=== PATIENT | female | born 1935 | race Caucasian/White ===

== ENCOUNTER → 2020-05-09 11:09 | Outpatient (CLI) | payer MEDICARE, OTHER, SELFPAY ==
--- NOTE | 2020-05-09 11:19 | VDLE_ITS ---
Reason For Study: Edema RIGHT LEFT GSV is normal. GSV is normal. CFV is compressible, spontaneous, phasic, CFV is compressible, spontaneous, phasic, competent and demonstrates normal competent, and demonstrates normal augmentation. augmentation. FV is compressible, spontaneous, phasic, FV is compressible, spontaneous, phasic, competent and demonstrates normal competent and demonstrates normal augmentation. augmentation. FV distal only visualized with color. pt POP V is compressible, spontaneous, phasic, unable to tolerate comrpession. competent and demonstrates normal POP V is compressible, spontaneous, phasic, augmentation. competent and demonstrates normal T/P Trunk is compressible. augmentation. PTV is compressible. T/P Trunk is compressible. LT PerV is compressible. PTV is compressible. RT PerV is compressible. Procedure Exam performed in department. A preliminary report was called and/or faxed to [facility]. Interpretation Summary Deep veins of the lower extremities are bilaterally patent and compressible segmentally. There is no evidence of deep vein thrombosis on either side. Valvular competence appears intact within the proximal deep venous systems bilaterally. The great saphenous veins appear bilaterally patent and compressible segmentally. Ordering Physician: Sheila Gloria Referring Physician: Kathy Calle Performed By: Chelsea Piña RVT and Student
[2020-05-09 12:40] LABS: Hematocrit 35.1 % (37-47); Hemoglobin 11.1 g/dL (12.0-15.0); Mean Corp Hgb Conc 31.6 g/dL (32-36); Mean Corpuscular Hgb 29.7 pg (27.0-32.0); Mean Corpuscular Volume 93.9 fL (81-99); Mean Platelet Vol. 8.6 fl (6.2-12.0); Platelet Count 367 K/mm3 (150-450); RBC Distribution Width CV 13.7 % (11.6-14.6); RBC Distribution Width SD 46.3 fl (35.1-43.9); Red Blood Count 3.74 M/mm3 (4.2-5.4); White Blood Count 8.3 K/mm3 (4.4-11.0)
[2020-05-09 13:08] LABS: ALB/GLOB Ratio 0.7 RATIO (0.9-2.4); AST(SGOT) 13 U/L (15-37); Alanine Aminotransfer ALT/SGPT 16 U/L (13-56); Albumin, Serum 3.1 g/dL (3.2-5.0); Alkaline Phosphatase 82 U/L (45-117); Anion Gap 7 (5-15); BUN 27 mg/dL (7-18); BUN/Creat Ratio 22.1 RATIO (10-20); Calcium,Total 9.4 mg/dL (8.5-10.1); Chloride 100 mmol/L (98-107); Creatinine, Serum 1.22 mg/dL (0.55-1.02); EST Glomerular Filtration Rate 45 mL/min (>60); Est Glom Filt Rate - Afr Amer 54 mL/min (>60); Globulin 4.3 g/dL (2.2-4.2); Glucose 96 mg/dL (74-106); Potassium 4.7 mmol/L (3.5-5.1); Protein, Total 7.4 g/dL (6.4-8.2); Sodium Level 133 mmol/L (136-145); T4 Free Direct 1.41 ng/dL (0.76-1.46); Thyroid Stim Hormone (TSH) 0.99 uIU/mL (0.358-3.74)
== END ==
PROVIDERS: PCP Nurse Practitioner; Referring Provider Internal Medicine; Visit Provider Internal Medicine
DX: R60.0 Localized edema (principal); D47.3 Essential (hemorrhagic) thrombocythemia; E87.1 Hypo-osmolality and hyponatremia
CPT/HCPCS: 36415; 80053; 82140; 84439; 84443; 85027; 93970

== ENCOUNTER 2021-08-11 01:56 | Emergency (ER) | payer MEDICARE, OTHER, SELFPAY ==
[2021-08-11 01:57] VITALS: BP 151/74; PULSE 100; RESP 16; TEMP 36.9; O2SAT 98; BMI 43.2
--- NOTE | 2021-08-11 02:14 | RAD_ITS ---
STUDY: X-RAY - RIGHT KNEE REASON FOR EXAM: Female, 86 years old. Pain after trauma TECHNIQUE: 4 view(s) of the knee. COMPARISON: None. FINDINGS: Please see the impression. RAD/Knee 4 or More Views IMPRESSION: No definite acute fracture or dislocation in the right knee. Advanced tricompartmental osteoarthritis. Trace suprapatellar joint fluid. Vascular calcification. Electronically Signed: Howie Lucero MD at 3:05 EDT Tel , Service support ,
--- NOTE | 2021-08-11 02:16 | EDS_ITS ---
HPI History of Present Illness Chief Complaint: Lower Extremity Injury Informant: patient Narrative Narrative: Patient has right knee area pain. She has been having problems with his knee for a long time. Its been recommended that she have a replacement. She does use a walker. She lives independently. She states she was trying to turn to sit down. Her right knee just kind of bound and gave out on her. She fell directly down. She never hit her head. She has some increase in her baseline right knee pain and some right hip area soreness. She does not want anything for pain now and was offered. No numbness or tingling. No palpitations or chest pain. This was a mechanical fall and not syncope. [facility] Medical History Cataract Diabetes Hypertension Allergy/AdvReac Type Severity Reaction Status Date / Time acetaminophen Allergy Itching Verified 08/11/21 02:05 Penicillins Allergy Shortness Verified 08/11/21 02:05 of breath Surgical History History of hysterectomy Total knee replacement status Social History Smoking Status: Never smoker ROS ROS ED Constitutional Constitutional ED: Denies fever(s) or subjective ENT ENT ED: Denies rhinorrhea or sore throat Cardiovascular Cardiovascular: Denies chest pain, palpitations or racing heartbeat Respiratory/Chest Respiratory/Chest: Denies dyspnea Gastrointestinal Gastrointestinal: Denies nausea or vomiting Musculoskeletal Musculoskeletal: Reports arthralgias and other Details: See history of present illness. ; Denies back pain or neck pain Integumentary Denies abscess, Abrasions or rash Neurologic Neurologic: Denies paresthesias or weakness Hematologic/Lymphatic Hematologic/Lymphatic: Denies easy bleeding or easy bruising Allergic/Immunologic Allergic/Immunologic ED: Denies urticaria EXAM Physical Exam Const Vital Signs: 08/11/21 01:57 08/11/21 04:35 Temperature 98.5 F Temperature Source Temporal Pulse Rate 100 Respiratory Rate 16 17 Blood Pressure 151/74 H Blood Pressure Mean 99 Pulse Ox 98 Oxygen Delivery Method Room Air Positive well nourished, well developed and obese General Appearance ED: well developed and NAD Nutritional Appearance: obese HEENT Reports moist mucous membranes Neck supple Thyroid: Negative for tender Chest Wall inspection of chest normal Resp normal respiratory effort and clear to auscultation bilaterally Cardio regular rate and regular rhythm GI non-tender Palpation: soft Back/Spine no CVA tenderness General Back: CVA tenderness Extremity Extremity Narrative: Patient does have small contusions to the front of both knees. Left has well-healed surgical incision. Right has some nonfocal tenderness. No deformity. No real tenderness of the right hip although she states it is a little bit sore in that area. Pulses are intact. Sensation is intact. Neuro oriented x3 Sensorium / Orientation: alert MDM MDM MDM Narrative Medical decision making narrative: X-rays of hip and knee show significant arthritis but no acute fracture. Patient was able to get up and move with a walker. I had a long talk about plans. She does not want surgery for this knee. She is feels she is too old and the recovery would be too hard. She is amenable to physical therapy. I also talked about seeing orthopedics. They may be able to do steroid injections that could calm this down. She states she has had that done before with good success but is been several years. Radiography Diagnostic Testing: Clinical Impression(s) from Imaging Studies Knee X-Ray 08/11/21 02:14 IMPRESSION: No definite acute fracture or dislocation in the right knee. Advanced tricompartmental osteoarthritis. Trace suprapatellar joint fluid. Vascular calcification. Electronically Signed: Howie Lucero MD at 3:05 EDT Tel , Service support , Hip/Pelvis X-Ray 08/11/21 02:40 IMPRESSION: No definite acute fracture or dislocation in the pelvis and right hip. 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 Lower lumbar spondylosis. Electronically Signed: Howie Lucero MD at 3:06 EDT Tel , Service support , Discharge Plan Triage Chief Complaint: Lower Extremity Injury ED Provider: Yandel Leo Dx/Rx/DC Orders Clinical Impression: Fall at home, Injury of knee, right Instructions: ED Knee Sprain Primary Care Provider: Kathy Calle NP Referrals: Bryan Shearer DO [STAFF PHYSICIAN] - As soon as possible Kathy Calle SA[facility]NER, [facility]NER-C [Primary Care Provider] - As soon as possible Disposition Disposition: Home, Self Care Discharge Date/Time: 08/11/21 04:48
--- NOTE | 2021-08-11 02:40 | RAD_ITS ---
STUDY: X-RAY - PELVIS AND RIGHT HIP REASON FOR EXAM: Female, 86 years old. Pain after trauma TECHNIQUE: 3 views of the pelvis and hip. COMPARISON: None. FINDINGS: Please see the impression. RAD/HIP, UNI W/ Pelvis 2-3 Views IMPRESSION: No definite acute fracture or dislocation in the pelvis and right hip. 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 Lower lumbar spondylosis. Electronically Signed: Howie Lucero MD at 3:06 EDT Tel , Service support ,
--- NOTE | 2021-08-11 04:30 | NURSING ---
patient was able to get up into standing position with miminimal assist, and walked from the bed, around to the other side of the room. She sat down in the chair, at her request. She states she did the PT after her sx but never went back to get PT for strengthening and states she thought about it but then covid hit.
[2021-08-11 04:35] VITALS: RESP 17
== END 2021-08-11 04:48 | disposition home or self-care (01) ==
PROVIDERS: Emergency Provider Emergency Medicine; PCP Nurse Practitioner
DX: S89.91XA Unspecified injury of right lower leg, initial encounter (principal); W18.39XA Other fall on same level, initial encounter; Y93.89 Activity, other specified; Y92.9 Unspecified place or not applicable; Y99.8 Other external cause status; M17.11 Unilateral primary osteoarthritis, right knee; M16.0 Bilateral primary osteoarthritis of hip; E66.9 Obesity, unspecified; Z68.41 Body mass index [BMI] 40.0-44.9, adult
CPT/HCPCS: 73502; 73564; 99284